=== PATIENT | female | born 1945 | race Caucasian/White ===

== ENCOUNTER 2022-01-09 14:17 | Inpatient (IN) | payer BC, MEDICARE ==
[2022-01-09] MEDS ORDERED: HYDROmorphone 1 MG/ML 1 ML SYRINGE IVP STA ×2 (14:29→18:28)
[2022-01-09] MEDS ORDERED: LORazepam 2 MG/ML INJ IV STA ×2 (14:29→18:28)
--- NOTE | 2022-01-09 14:35 | ED ---
Upper Extremity HPI - General Chief Complaint: Extremity Injury, Upper Stated Complaint: Arm Fracture Time Seen by Provider: 01/09/22 14:17 Source: patient, EMS, RN notes reviewed Mode of arrival: EMS Limitations: no limitations - History of Present Illness Initial Comments: 76-year-old female who states that she fell landing on her outstretched left up per extremity she stated she heard a snap and felt immense pain to the left arm. She denies any head neck or back pain she does have she states a abrasion to her left knee no other current complaints or modifying factors she does take Plavix no other medications that would effect blood clotting. Complaint: Injury to:: left, arm - Related Data Home Medications Medication Instructions Recorded Confirmed Albuterol Inhaler [Ventolin Hfa 2 puff INHALATION RT-Q6H PRN 01/09/22 01/09/22 Inhaler] Ascorbic Acid [Vitamin C] 1,000 mg PO HS 01/09/22 01/09/22 Atorvastatin [Lipitor] 10 mg PO HS 01/09/22 01/09/22 Clopidogrel [Plavix] 75 mg PO DAILY 01/09/22 01/09/22 Insulin Aspart Prot/Insuln Asp See Protocol SQ AC-TID 01/09/22 01/09/22 [Novolog Mix 70-30 Flexpen] Melatonin 5 mg PO HS 01/09/22 01/09/22 amLODIPine [Norvasc] 5 mg PO HS 01/09/22 01/09/22 lisinopriL [Zestril] 2.5 mg PO DAILY 01/09/22 01/09/22 metFORMIN HCL [Glucophage] 1,000 mg PO BID 01/09/22 01/09/22 Allergies Allergy/AdvReac Type Severity Reaction Status Date / Time No Known Allergies Allergy Verified 01/09/22 18:20 Review of Systems ROS Statement: Those systems with pertinent positive or pertinent negative responses have been documented in the HPI. ROS Other: All systems not noted in ROS Statement are negative. General Exam - General Exam Comments Initial Comments: This is a well-developed well-nourished awake alert oriented 4 female with a [place] Coma Scale of 15 Limitations: no limitations General appearance: alert, in no apparent distress Head exam: Present: atraumatic, normocephalic, normal inspection Eye exam: Present: normal appearance, PERRL, EOMI. Absent: scleral icterus, conjunctival injection, periorbital swelling ENT exam: Present: normal exam, mucous membranes moist Neck exam: Present: normal inspection, full ROM, other (Surgery bruits). Absent: tenderness, meningismus, lymphadenopathy Respiratory exam: Present: normal lung sounds bilaterally. Absent: respiratory distress, wheezes, rales, rhonchi, stridor Cardiovascular Exam: Present: regular rate, normal rhythm, normal heart sounds. Absent: systolic murmur, diastolic murmur, rubs, gallop, clicks Extremities exam: Present: tenderness, normal capillary refill, other (Examination the extremities right upper extremity and right lower extremity unremarkable there is an abrasion over the knee and the left lower extremity tenderness palpation with evidence of deformity of the mid left humerus. Patient is splinted at this time. No sensorimotor or vascular deficits n). Absent: full ROM Back exam: Present: normal inspection, full ROM. Absent: tenderness Neurological exam: Present: alert, oriented X3, CN II-XII intact Psychiatric exam: Present: normal affect, normal mood Skin exam: Present: warm, dry, normal color, abrasion (As noted). Absent: rash Course Vital Signs 01/09/22 14:21 Temperature 98.0 F Pulse Rate 67 Respiratory 20 Rate Blood Pressure 167/67 O2 Sat by Pulse 95 Oximetry Procedures - Orthopedic Splinting/Casting Injury #1 Side: left Upper Extremity Injury Location: long arm Upper Extremity Immobilizer: posterior splint Additional Comments: Patient did tolerate this well is a good neurovascular exam afterwards. Patient's arm in the area of fracture demonstrate no evidence of any puncture wound. It had ample labral place over the fracture site. Medical Decision Making - Medical Decision Making I did discuss the findings with the patient and multiple family hours as well as Dr. Wade patient will be admitted for inpatient evaluation and treatment. - Radiology Data Radiology results: report reviewed (Imaging reviewed his old report evidence a comminuted midshaft fracture left humerus with displacement CT also done please see the complete report), image reviewed Disposition Clinical Impression: Closed left humeral fracture, Fall Disposition: ADMITTED IP TO THIS [facility] Condition: Fair Referrals: Daniel Haq DO [Primary Care Provider] - 1-2 days Decision Date: 01/09/22 Decision Time: 19:00
[2022-01-09] MEDS ORDERED: ONDANSETRON 4 MG/2 ML VIAL IVP STA (15:12)
--- NOTE | 2022-01-09 15:34 | XR ---
EXAMINATION TYPE: XR humerus LT DATE OF EXAM: 01/09/2022 COMPARISON: NONE HISTORY: Pain TECHNIQUE: 3 views FINDINGS: There is comminuted midshaft fracture of the left humerus. There is 100% posterior displace ment of the distal major fragment. There is spiral fracture component extending up to the femoral nec k. No dislocation seen at the elbow joint and shoulder joint. IMPRESSION: Acute comminuted displaced fracture mid shaft of the humerus.
--- NOTE | 2022-01-09 17:46 | CT ---
EXAMINATION TYPE: CT shoulder LT wo con DATE OF EXAM: 01/09/2022 COMPARISON: None HISTORY: Humerus fracture CT DLP: 587.3 mGycm Automated exposure control for dose reduction was used. Images obtained without contrast from the top of the AC joint to the distal shaft of the humerus with no contrast. There is comminuted displaced fracture of the mid and proximal shaft of the left humerus. There are s piral component extending up to the humeral neck. There is 100% lateral displacement of the distal ma carmen fragment. No evidence of a soft tissue mass. The glenohumeral joint is intact. The AC joint is intact. Scapula appears intact. No focal bone destr uction. The glenoid appears intact. IMPRESSION: Acute displaced comminuted fracture of the midshaft of the humerus. No evidence of a fracture at the shoulder joint. Mild calcific tendinitis noted at the greater tuberosity humerus.
[2022-01-09] MEDS: ONDANSETRON 4 MG/2 ML VIAL IVP STA (18:52)
[2022-01-09] MEDS ORDERED: NALOXONE 0.4 MG/ML 1 ML VIAL IV PRN (19:22)
[2022-01-09 20:05] LABS: Basophils % (A) 0 %; Eosinophils # (A) 0.1 k/uL (0-0.7); Eosinophils % (A) 1 %; HCT 35.9 % (34.0-46.0); Lymphocytes # (A) 1.5 k/uL (1.0-4.8); Lymphocytes % (A) 12 %; MCH 30.3 pg (25.0-35.0); MCHC 33.3 g/dL (31.0-37.0); MCV 90.8 fL (80.0-100.0); Mean Platelet Volume 6.9; Monocytes # (A) 0.8 k/uL (0-1.0); Monocytes % (A) 7 %; Neutrophils # (A) 10.2 k/uL (1.3-7.7); Neutrophils % (A) 79 %; Platelet Count 333 k/uL (150-450); RBC 3.95 m/uL (3.80-5.40); RDW 13.6 % (11.5-15.5); WBC 12.8 k/uL (3.8-10.6)
[2022-01-09 20:13] LABS: Prothrombin Time 10.4 sec (9.0-12.0)
[2022-01-09] MEDS: SODIUM CHLORIDE 0.9% 1,000 ML IV SCH (20:15)
[2022-01-09 20:53] LABS: ALT 13 U/L (4-34); AST 24 U/L (14-36); African American GFR (CKD) >90 (>60 ml/min/1.73 sqM); Albumin 3.9 g/dL (3.5-5.0); Alkaline Phosphatase 50 U/L (38-126); Anion Gap 11 mmol/L; Blood Urea Nitrogen 21 mg/dL (7-17); Calcium 9.5 mg/dL (8.4-10.2); Carbon Dioxide 27 mmol/L (22-30); Chloride 96 mmol/L (98-107); Glucose 146 mg/dL (74-99); Non-African American GFR(CKD) 87 (>60 ml/min/1.73 sqM); Potassium 3.9 mmol/L (3.5-5.1); Sodium 134 mmol/L (137-145); Total Bilirubin 0.4 mg/dL (0.2-1.3); Total Protein 6.1 g/dL (6.3-8.2)
[2022-01-09 23:02] LABS: Glucose,Whole Blood 151 mg/dL (70-110)
[2022-01-09] MEDS: INSULIN ASPART (NovoLOG) 100 UNIT/ML VIAL SQ SCH (23:24)
[2022-01-09] MEDS: MELATONIN 5 MG TABLET PO SCH (23:25)
[2022-01-09] MEDS: amLODIPine 5 MG TAB PO SCH (23:25)
--- NOTE | 2022-01-09 23:54 | P.CONS ---
History of Present Illness - Reason for Consult Consult date: 01/09/22 pre op eval - Chief Complaint fall - History of Present Illness 76 year old female with CAD recent stent 6 months ago on plavix, DM , h/o stroke She comes in today after sustaining an accidental slip and fall on outstretched hand, resulting in severe pain in her left arm. she denies any LOC or head injury. she denies any associated palpitations, SOB, chest pain, denies any recent illness or hospitalization. she reports recent history of CAD requiring a stent about 6 months ago, currently on plavix. she denies any recent episodes within last month of CHF, arrhythmias, or MN. she able to do chores around the house, with no limitations related to chest pain or SOB . in the ED, imaging showed closed left humeral fracture . she was placed in back slap splint , and admitted to surgery medicine consulted for medical management and pre op eval. blood work unremarkable except for elevated WBC , mild hyponatremia , slightly elevated blood sugar. Review of Systems Pertinent positives as noted in HPI. All other systems were reviewed and are negative Past Medical History Past Medical History: Coronary Artery Disease (CAD), CVA/TIA, Diabetes Mellitus, Hyperlipidemia, Hypertension - Past Family History family Family Medical History: Coronary Artery Disease (CAD) Medications and Allergies Home Medications Medication Instructions Recorded Confirmed Type Albuterol Inhaler [Ventolin Hfa 2 puff INHALATION RT-Q6H PRN 01/09/22 01/09/22 History Inhaler] Ascorbic Acid [Vitamin C] 1,000 mg PO HS 01/09/22 01/09/22 History Atorvastatin [Lipitor] 10 mg PO HS 01/09/22 01/09/22 History Clopidogrel [Plavix] 75 mg PO DAILY 01/09/22 01/09/22 History Insulin Aspart Prot/Insuln Asp See Protocol SQ AC-TID 01/09/22 01/09/22 History [Novolog Mix 70-30 Flexpen] Melatonin 5 mg PO HS 01/09/22 01/09/22 History amLODIPine [Norvasc] 5 mg PO HS 01/09/22 01/09/22 History lisinopriL [Zestril] 2.5 mg PO DAILY 01/09/22 01/09/22 History metFORMIN HCL [Glucophage] 1,000 mg PO BID 01/09/22 01/09/22 History Allergies Allergy/AdvReac Type Severity Reaction Status Date / Time No Known Allergies Allergy Verified 01/09/22 18:20 Physical Exam Vitals: Vital Signs Temp Pulse Pulse Resp BP BP Pulse Ox 01/09/22 20:59 98.8 F 72 13 158/65 99 01/09/22 19:10 74 16 142/62 96 01/09/22 14:21 98.0 F 67 20 167/67 95 Intake and Output 01/09/22 01/09/22 01/09/22 06:59 14:59 22:59 Other: Weight 66.678 kg Constitutional: No acute distress, sleepy due to recently medicated , easily arousable Eyes: Anicteric sclerae, moist conjunctiva, Pupils equal round reactive to light ENMT: NC/AT Oropharynx clear, no erythema, or exudates Neck: Supple, no masses, or JVD No carotid bruits No thyromegaly Lungs: Clear to auscultation Clear to percussion Normal respiratory effort, no accessory muscle use Cardiovascular: Heart regular in rate and rhythm, systolic murmurs, no gallops, or rubs No peripheral edema Abdominal: Soft Nontender, no guarding, rebound or rigidity Abdomen moving with respiration Normoactive bowel sounds No hepatomegaly, No splenomegaly No palpable mass No abdominal wall hernia noted Skin: Normal temperature, tone, texture, turgor No induration No subcutaneous nodules No rash, lesions No ulcers Extremities: No digital cyanosis No clubbing Pedal pulses intact and symmetrical Radial pulses intact and symmetrical , capillary refill immediate No calf tenderness Psychiatric: sleepy easily arousable and oriented to person, place and time Appropriate affect fair judgement Neuro Muscles Strength 5/5 in bilateral lower and right upper extremities , limited exam over left UE, due to fracture of the humerus Sensation to light touch grossly present throughout Cranial nerves II-XII grossly intact No focal sensory deficits Lymphatics: no palpable cervical or supraclavicular , or inguinal lymph nodes Results CBC & Chem 7: 01/09/22 19:50 01/09/22 19:50 Labs: Abnormal Lab Results - Last 24 Hours (Table) 01/09/22 01/09/22 Range/Units 19:50 19:50 WBC 12.8 H (3.8-10.6) k/uL Neutrophils # 10.2 H (1.3-7.7) k/uL Sodium 134 L (137-145) mmol/L Chloride 96 L (98-107) mmol/L BUN 21 H (7-17) mg/dL Glucose 146 H (74-99) mg/dL Total Protein 6.1 L (6.3-8.2) g/dL Assessment and Plan Assessment: closed left humeral fracture secondary to accidental fall left arm in back splint management per orthopedic pain control h/o CAD s/p stent 6 months ago cardiology consult plavix on hold , await cardiology input resume statin hypertension resume amlodipine hold lisinopril , resume post op day 1 DM insulin sliding scale check A1c DVT PPX heparin sc tid full code cardiology consulted for cardiac clearance due to recent CAD requiring stent placement less than 6 months ago . no symptoms suggestive of active heart disease check EKG patient is high risk for perioperative cardiovascular complications with no identifiable modifiable risk factors at this time .
[2022-01-10] MEDS: HEPARIN SODIUM,PORCINE/PF 5,000 UNIT/0.5 ML SYRINGE SQ SCH ×4 (01:19→23:40)
[2022-01-10] MEDS: SODIUM CHLORIDE 0.9% 1,000 ML IV SCH ×3 (05:14→16:13)
[2022-01-10] MEDS: HYDROmorphone 1 MG/ML 1 ML SYRINGE IVP PRN ×2 (05:25→20:03)
[2022-01-10] MEDS: ONDANSETRON 4 MG/2 ML VIAL IVP PRN (05:25)
[2022-01-10 07:00] LABS: Glucose,Whole Blood 159 mg/dL (70-110)
[2022-01-10] MEDS: INSULIN ASPART (NovoLOG) 100 UNIT/ML VIAL SQ SCH ×4 (07:44→23:05)
--- NOTE | 2022-01-10 08:12 | P.HPOR ---
History of Present Illness H&P Date: 01/10/22 This patient is a 76-year-old female with past medical history of CAD on Plavix with recent stent, stroke, diabetes that presented to [facility] emergency department yesterday with complaints of left arm pain after a fall. Patient states she was walking on the stairs at her daughter's house and she missed a step, falling onto the left arm. She felt a snap and experienced immediate pain in the arm. She was transported to [facility] emergency department. X-rays in the emergency department revealed a displaced left humerus fracture. She is admitted to the care of Dr. Wade with a consult placed to internal medicine. Patient is examined bedside this morning. She is complaining of isolated left arm pain. She denies numbness or tingling of the left upper extremity. She denies neck pain. Last dose of Plavix was yesterday. She believes she might have hit her head but only slightly, denies headaches or vision changes. She otherwise feels that this time is no additional complaints. Vital signs stable. Past Medical History Past Medical History: Coronary Artery Disease (CAD), CVA/TIA, Diabetes Mellitus, Hyperlipidemia, Hypertension Additional Past Medical History / Comment(s): Ulcers in past, heart cath in 1979, CA in 2007 Last Myocardial Infarction Date:: 2007 History of Any Multi-Drug Resistant Organisms: None Reported Past Surgical History: Cholecystectomy, Heart Catheterization With Stent Additional Past Surgical History / Comment(s): Throat polyps removed Past Anesthesia/Blood Transfusion Reactions: Previous Problems w/ Anesthesia Additional Past Anesthesia/Blood Transfusion Reaction / Comment(s): Patient is very sleepy after anesthesia; no blood trnsfushions known Date of Last Stent Placement:: 1979 Past Psychological History: Anxiety, Depression, PTSD Smoking Status: Current every day smoker - Past Family History family Family Medical History: Coronary Artery Disease (CAD) Medications and Allergies Home Medications Medication Instructions Recorded Confirmed Type Albuterol Inhaler [Ventolin Hfa 2 puff INHALATION RT-Q6H PRN 01/09/22 01/09/22 History Inhaler] Ascorbic Acid [Vitamin C] 1,000 mg PO HS 01/09/22 01/09/22 History Atorvastatin [Lipitor] 10 mg PO HS 01/09/22 01/09/22 History Clopidogrel [Plavix] 75 mg PO DAILY 01/09/22 01/09/22 History Insulin Aspart Prot/Insuln Asp See Protocol SQ AC-TID 01/09/22 01/09/22 History [Novolog Mix 70-30 Flexpen] Melatonin 5 mg PO HS 01/09/22 01/09/22 History amLODIPine [Norvasc] 5 mg PO HS 01/09/22 01/09/22 History lisinopriL [Zestril] 2.5 mg PO DAILY 01/09/22 01/09/22 History metFORMIN HCL [Glucophage] 1,000 mg PO BID 01/09/22 01/09/22 History Allergies Allergy/AdvReac Type Severity Reaction Status Date / Time No Known Allergies Allergy Verified 01/09/22 18:20 Physical Examination On examination, patient is sitting up in bed in no apparent distress. She is alert and oriented 3. Her head appears normocephalic and atraumatic. Her breathing appears nonlabored. On inspection of the right upper extremity, no obvious deformities or signs of trauma. On inspection of the left upper extremity, there is a posterior splint in place in a sling. The visible portion of the hand and fingers are warm and well-perfused with brisk capillary refill distally. Radial pulse is palpable. Motor and sensory function is intact of the left upper extremity. On inspection of the bilateral lower extremities, no obvious deformities or signs of trauma. There is a very superficial abrasion at the left anterior knee. No pain with palpation of the left knee. No left knee effusion. No pain with passive [id number] of the bilateral hips. Results Left humerus x-ray 01/09/22: Displaced left humeral shaft fracture - Labs Labs: Abnormal Lab Results - Last 24 Hours (Table) 01/09/22 01/09/22 01/09/22 Range/Units 19:50 19:50 23:00 WBC 12.8 H (3.8-10.6) k/uL Neutrophils # 10.2 H (1.3-7.7) k/uL Sodium 134 L (137-145) mmol/L Chloride 96 L (98-107) mmol/L BUN 21 H (7-17) mg/dL Glucose 146 H (74-99) mg/dL POC Glucose (mg/dL) 151 H (70-110) mg/dL Total Protein 6.1 L (6.3-8.2) g/dL 01/10/22 Range/Units 06:58 WBC (3.8-10.6) k/uL Neutrophils # (1.3-7.7) k/uL Sodium (137-145) mmol/L Chloride (98-107) mmol/L BUN (7-17) mg/dL Glucose (74-99) mg/dL POC Glucose (mg/dL) 159 H (70-110) mg/dL Total Protein (6.3-8.2) g/dL H & H 01/09/22 Range/Units 19:50 Hgb 12.0 (11.4-16.0) gm/dL Hct 35.9 (34.0-46.0) % Coagulation 01/09/22 Range/Units 19:50 INR 1.0 (<1.2) Result Diagrams: 01/09/22 19:50 01/09/22 19:50 Assessment and Plan Assessment: Displaced left humeral shaft fracture Plan: - Clinical and imaging findings were discussed with the patient. The patient was discussed with Dr. Wade. Recommend operative fixation of the patient's left humerus fracture with intramedullary veronica. Surgical risks were discussed with the patient. Patient gave verbal consent for surgery bedside this morning. - Keep current splint and sling in place the left upper extremity. - Internal medicine consultation for preoperative medical evaluation. - We will plan for surgery this morning pending medical clearance. NPO diet.
[2022-01-10] MEDS ORDERED: fentaNYL (PF) 50 MCG/ML 2 ML AMP ONE (10:00)
[2022-01-10] MEDS ORDERED: MIDAZOLAM 2 MG/2 ML VIAL ONE (10:00)
[2022-01-10] MEDS ORDERED: PROPOFOL 10 MG/ML 20 ML VIAL IV ONE (10:00)
[2022-01-10] MEDS ORDERED: LIDOCAINE 2% INJ 20 MG/ML (2 ML VIAL) ONE (10:00)
[2022-01-10] MEDS ORDERED: SUCCINYLCHOLINE CHLORIDE 200 MG/10 ML VIAL IV ONE (10:00)
[2022-01-10] MEDS ORDERED: PHENYLEPHRINE-0.9% NACL SYG 1,000 MCG/10 ML SYRINGE ONE (10:00)
[2022-01-10] MEDS ORDERED: ONDANSETRON 4 MG/2 ML VIAL ONE (10:00)
[2022-01-10] MEDS ORDERED: LACTATED RINGERS 1,000 ML IV ONE (10:05)
[2022-01-10] MEDS ORDERED: SODIUM CHLORIDE 0.9% 100 ML with ceFAZolin 2,000 MG IV ONE ×2 (10:25)
--- NOTE | 2022-01-10 10:39 | P.PN ---
Subjective Progress Note Date: 01/10/22 Patient was seen and examined. No acute events overnight. Patient reports well controlled pain in her left arm. She denies any chest pain, shortness breath or palpitations. No nausea or vomiting. No fever or chills. General: [non toxic], [no distress], [appears at stated age] Derm: [warm], [dry] Head: [atraumatic], [normocephalic], [symmetric] Eyes: [EOMI], [no lid lag], [anicteric sclera] Mouth: [no lip lesion], [mucus membranes moist] Cardiovascular: [S1S2 reg], [systolic murmur] Lungs: [CTA bilateral], [no rhonchi, no rales] , [no accessory muscle use] Abdominal: [soft], [ nontender to palpation], [no guarding], [no appreciable organomegaly] Ext: [no gross muscle atrophy], [left arm wrapped and in a sling], [no contractures] Neuro: [no focal neuro deficits] Psych: [Alert], [oriented], [appropriate affect] #Systolic murmur #History of CAD post stent #Leukocytosis with neutrophilia #Hypochloremic hyponatremia #Elevated BUN #Left humeral fracture Chronic conditions: Hypertension, diabetes mellitus Cardiology has been consulted for cardiac clearance due to recent CAD requiring stent placement less than 6 months ago. Restart Plavix when OK with cardiology and surgery. Restart Lipitor. Patient would benefit from a beta antonio. Leukocytosis likely reactive. Patient with no signs of infection. Continue to monitor. Hypochloremic hyponatremia and elevated BUN likely due to slight dehydration. Continue normal saline at 50 mL per hour. Repeat BMP tomorrow morning. Orthopedic surgery consulted, plans for surgery today. Continue fall precautions. PT and OT has been consulted to work with this patient. Management as per orthopedic surgery. Continue amlodipine and lisinopril. Monitor vitals, adjust medication if necessary. Continue low-dose sliding scale along with Accu-Cheks 4 times a day and hypoglycemic precautions. Heparin for DVT prophylaxis. Patient would like to be full code. Thank you for this consultation. Please call [facility] with additional questions or concerns. Objective - Vital Signs Vital signs: Vital Signs Temp 98.3 F 01/10/22 08:00 Pulse 71 01/10/22 08:00 Resp 18 09/05/22 08:00 BP 127/54 01/10/22 08:00 Pulse Ox 96 01/10/22 08:00 FiO2 Intake & Output 01/09/22 01/10/22 01/10/22 18:59 06:59 18:59 Weight 66.678 kg 66.678 kg Other: # Voids 1 - Labs CBC & Chem 7: 01/09/22 19:50 01/09/22 19:50 Labs: Abnormal Lab Results - Last 24 Hours (Table) 01/09/22 01/09/22 01/09/22 Range/Units 19:50 19:50 23:00 WBC 12.8 H (3.8-10.6) k/uL Neutrophils # 10.2 H (1.3-7.7) k/uL Sodium 134 L (137-145) mmol/L Chloride 96 L (98-107) mmol/L BUN 21 H (7-17) mg/dL Glucose 146 H (74-99) mg/dL POC Glucose (mg/dL) 151 H (70-110) mg/dL Total Protein 6.1 L (6.3-8.2) g/dL 01/10/22 Range/Units 06:58 WBC (3.8-10.6) k/uL Neutrophils # (1.3-7.7) k/uL Sodium (137-145) mmol/L Chloride (98-107) mmol/L BUN (7-17) mg/dL Glucose (74-99) mg/dL POC Glucose (mg/dL) 159 H (70-110) mg/dL Total Protein (6.3-8.2) g/dL
--- NOTE | 2022-01-10 12:03 | P.OP ---
Date of Procedure: 01/10/22 Preoperative Diagnosis: Closed spiral fracture left midshaft humerus with proximal extension Postoperative Diagnosis: Closed spiral fracture left midshaft humerus with proximal extension Procedure(s) Performed: Closed intramedullary rodding left humerus Implants: [employer] TriGen humeral nail 8 mm x 26 cm Anesthesia: ZAIN Surgeon: Gunnar Wade Filter Press Tender Head #1: Marla Daly Estimated Blood Loss (ml): 30 Pathology: none sent Condition: stable Disposition: PACU Indications for Procedure: This is a 76-year-old female sustained a ground-level fall onto her left arm. She sustained a closed spiral fracture of her left midshaft humerus proximal extension. She is admitted the hospital after reviewing x-rays and discussing the surgical and nonsurgical treatment options with her at length, she wished to proceed with closed intramedullary rodding of her left humerus and informed consent was obtained. Operative Findings: Operative findings are consistent with a spiral fracture of the midshaft left humerus with proximal extension. Description of Procedure: The patient was seen in the preoperative area the consent was reviewed per site was marked with a skin marker. Patient was then brought to the operating room and given 2 g of Ancef intravenously general ossific was administered by the anesthesia department patient was placed in a beachchair position with the bony prominences well-padded. The left upper extremity was then prepped and draped in usual sterile fashion. A universal timeout was performed which confirmed the patient's name, surgical site, ALLERGIES, and consent. Using fluoroscopy insertion site of the humeral veronica was located at the proximal humerus. Skin incision was made sharply incision was carried down to the deltoid muscle. The deltoid was then split in line with its fibers. The rotator cuff tendon was visualized and split in line with the incision to the insertion site just medial to the greater tuberosity. Guidewire was inserted under fluoroscopic guidance at the insertion point of the veronica. After correct placement of the guidewire was confirmed, a hand reamers used to open up the proximal humerus. A ball-tipped guidewire was then passed proximally to distally across the fracture site. This was done with fluoroscopic guidance. Next, hand reamers were used to ream the humeral canal to 9 mm. The veronica was then measured and appropriate size veronica was inserted over the guidewire to the appropriate depth. During insertion around the fracture was reduced well. Next using the proximal targeting guide, 3 screws were then placed in the humeral head through small stab incisions. This was confirmed with fluoroscopy. Proximal targeting guide was then removed and attention was directed distally. Under fluoroscopic guidance a small incision was made the anterior aspect of the distal arm for the distal locking screw. The incision was carried bluntly down to the anterior cortex of the bone and using fluoroscopy the guide pin was inserted through the distal locking hole. This was then measured and the appropriate distal locking screws placed. Final fluoroscopic x-rays confirmed reduction of fracture and placement of the proximal distal screws. There is what irrigated. The rotator cuff was repaired with #1 Vicryl followed by #1 Vicryl for the deltoid. 3-0 Vicryl was used for the subcutaneous tissues and goyo for the skin. Sterile dressings were applied patient was placed in an arm sling and transferred recovery room stable condition. Filter Press Tender Head MARILUZ Blake was hard due the complexity of surgery the need for skilled surgical attendant. She assisted in positioning, draping, exposure, retraction and closure of the wound.
--- NOTE | 2022-01-10 12:04 | XR ---
Intraoperative/procedural fluoroscopic services were provided for ORIF left humerus. Hardware appears intact with position. Midshaft humerus fracture identified with improvement in alignment. Total fluo roscopy time is 3 minutes with a total of 4 submitted images to PACS. Please see the operative note f or further details.
[2022-01-10] MEDS ORDERED: HYDROmorphone 0.5 MG/0.5 ML SYRINGE IVP PRN ×2 (12:25)
[2022-01-10] MEDS ORDERED: hydrOXYzine pamoate 25 MG CAP PO PRN (12:25)
[2022-01-10] MEDS ORDERED: SENNOSIDES-DOCUSATE SODIUM 1 EACH TAB PO PRN (12:25)
[2022-01-10 12:31] LABS: Glucose,Whole Blood 148 mg/dL (70-110)
[2022-01-10] MEDS: HYDROmorphone 0.5 MG/0.5 ML SYRINGE IVP PRN ×2 (12:33→12:41)
[2022-01-10] MEDS: ONDANSETRON 4 MG/2 ML VIAL IVP STA (13:11)
--- NOTE | 2022-01-10 14:58 | P.CRDCN ---
History of Present Illness History of present illness: This is Dr. Redman dictating a consult on this patient The patient was interviewed and examined IMPRESSION / ASSESSMENT: History of fall and a left humeral fracture status post ORIF Asymptomatic from a cardiac standpoint History of hypertension History of coronary stenting and an old anterior wall UT Type 2 diabetes Murmur of aortic stenosis, well known to the patient PLAN: Continue cardiac medications including atorvastatin Plavix amlodipine lisinopril Diabetes management per primary team/internal medicine Follow-up with her primary geomorphology teacher in [facility]. Patient already has an appointment HPI Patient has a history of fall resulting in fracture of the humerus She denies syncope She has not had any chest discomfort dizziness lightheadedness or any undue shortness of breath She looks comfortable ROS: No fever chills or rigors, no cough, phlegm or expectoration, no nausea, vomiting or diarrhea, no hematuria, dysuria, no musculoskeletal complaints, no strokes or seizures, no skin lesions. EXAMINATION: Afebrile 97F Pulse rate in the 70s and 80s Normal respirations Blood pressure 142/63 mmHg Heart systolic ejection murmur over the precordium No lower extremity edema REVIEW OF LABS, ECG & MEDICAL DATA White count 12.8 thousand, hemoglobin 12, platelet count 333,000 Sodium 134, potassium 3.9 BUN 21 and creatinine 0.64 Past Medical History Past Medical History: Coronary Artery Disease (CAD), CVA/TIA, Diabetes Mellitus, Hyperlipidemia, Hypertension Additional Past Medical History / Comment(s): Ulcers in past, heart cath in 1979, UT in 2007 Last Myocardial Infarction Date:: 2007 History of Any Multi-Drug Resistant Organisms: None Reported Past Surgical History: Cholecystectomy, Heart Catheterization With Stent Additional Past Surgical History / Comment(s): Throat polyps removed Past Anesthesia/Blood Transfusion Reactions: Previous Problems w/ Anesthesia Additional Past Anesthesia/Blood Transfusion Reaction / Comment(s): Patient is very sleepy after anesthesia; no blood trnsfushions known Date of Last Stent Placement:: 1979 Past Psychological History: Anxiety, Depression, PTSD Smoking Status: Current every day smoker - Past Family History family Family Medical History: Coronary Artery Disease (CAD) Medications and Allergies Home Medications Medication Instructions Recorded Confirmed Type Albuterol Inhaler [Ventolin Hfa 2 puff INHALATION RT-Q6H PRN 01/09/22 01/09/22 History Inhaler] Ascorbic Acid [Vitamin C] 1,000 mg PO HS 01/09/22 01/09/22 History Atorvastatin [Lipitor] 10 mg PO HS 01/09/22 01/09/22 History Clopidogrel [Plavix] 75 mg PO DAILY 01/09/22 01/09/22 History Insulin Aspart Prot/Insuln Asp See Protocol SQ AC-TID 01/09/22 01/09/22 History [Novolog Mix 70-30 Flexpen] Melatonin 5 mg PO HS 01/09/22 01/09/22 History amLODIPine [Norvasc] 5 mg PO HS 01/09/22 01/09/22 History lisinopriL [Zestril] 2.5 mg PO DAILY 01/09/22 01/09/22 History metFORMIN HCL [Glucophage] 1,000 mg PO BID 01/09/22 01/09/22 History Allergies Allergy/AdvReac Type Severity Reaction Status Date / Time No Known Allergies Allergy Verified 01/09/22 18:20 Physical Exam Vitals: Vital Signs Temp Pulse Pulse Resp BP BP Pulse Ox 01/10/22 13:00 91 18 149/65 93 L 01/10/22 12:45 86 18 142/63 94 L 01/10/22 12:30 82 18 158/80 94 L 01/10/22 12:22 97 F L 75 18 161/67 100 01/10/22 08:00 98.3 F 71 18 127/54 96 01/10/22 01:10 98.1 F 76 17 135/63 99 01/09/22 20:59 98.8 F 72 13 158/65 99 01/09/22 19:10 74 16 142/62 96 Intake and Output 01/09/22 01/10/22 01/10/22 22:59 06:59 14:59 Intake Total 1000 Output Total 30 Balance 970 Intake: IV 1000 Output: Estimated Blood Loss 30 Other: # Voids 1 1 Weight 66.678 kg 66.678 kg Results 01/09/22 19:50 01/09/22 19:50 Cardiac Enzymes 01/09/22 Range/Units 19:50 AST 24 (14-36) U/L Coagulation 01/09/22 Range/Units 19:50 PT 10.4 (9.0-12.0) sec CBC 01/09/22 Range/Units 19:50 WBC 12.8 H (3.8-10.6) k/uL RBC 3.95 (3.80-5.40) m/uL Hgb 12.0 (11.4-16.0) gm/dL Hct 35.9 (34.0-46.0) % Plt Count 333 (150-450) k/uL Comprehensive Metabolic Panel 01/09/22 Range/Units 19:50 Sodium 134 L (137-145) mmol/L Potassium 3.9 (3.5-5.1) mmol/L Chloride 96 L (98-107) mmol/L Carbon Dioxide 27 (22-30) mmol/L BUN 21 H (7-17) mg/dL Creatinine 0.64 (0.52-1.04) mg/dL Glucose 146 H (74-99) mg/dL Calcium 9.5 (8.4-10.2) mg/dL AST 24 (14-36) U/L ALT 13 (4-34) U/L Alkaline Phosphatase 50 (38-126) U/L Total Protein 6.1 L (6.3-8.2) g/dL Albumin 3.9 (3.5-5.0) g/dL Current Medications Generic Name Dose Route Start Last Admin Trade Name Freq PRN Reason Stop Dose Admin Hydrocodone Bitart/Acetaminophen 1 each 01/10/22 12:25 Hydrocodone/Apap 5-325mg 1 Each Tab PO Q6HR PRN Pain Scale 1 to 5 Hydrocodone Bitart/Acetaminophen 2 each 01/10/22 12:25 Hydrocodone/Apap 5-325mg 1 Each Tab PO Q6HR PRN Pain Scale 6 to 10 Amlodipine Besylate 5 mg 01/09/22 21:15 01/09/22 23:25 Amlodipine 5 Mg Tab PO 5 mg HS TABITHA Administration Atorvastatin Calcium 10 mg 01/10/22 21:15 Atorvastatin 10 Mg Tab PO HS TABITHA Heparin Sodium (Porcine) 5,000 unit 01/10/22 00:00 01/10/22 11:44 Heparin Sodium,Porcine/Pf 5,000 Unit/0.5 Ml Syringe SQ Not Given Q8HR TABITHA Hydromorphone HCl 1 mg 01/09/22 19:22 01/10/22 05:25 Hydromorphone 1 Mg/Ml 1 Ml Syringe IVP 1 mg Q3HR PRN Administration Severe Pain (Scale 7 to 10) Hydromorphone HCl 0.125 mg 01/10/22 12:25 Hydromorphone 0.5 Mg/0.5 Ml Syringe IVP Q3HR PRN Pain Scale 1 to 3 Hydromorphone HCl 0.25 mg 01/10/22 12:25 Hydromorphone 0.5 Mg/0.5 Ml Syringe IVP Q3HR PRN Pain Scale 4 to 6 Hydromorphone HCl 0.5 mg 01/10/22 12:25 01/10/22 12:41 Hydromorphone 0.5 Mg/0.5 Ml Syringe IVP 0.5 mg Q3HR PRN Administration Pain Scale 7 to 10 Hydroxyzine Pamoate 25 mg 01/10/22 12:25 Hydroxyzine Pamoate 25 Mg Cap PO Q6HR PRN Nausea/Anxiety Sodium Chloride 1,000 mls @ 50 mls/hr 01/09/22 19:30 01/10/22 07:44 Saline 0.9% IV Not Given .Q20H [facility] Cefazolin Sodium 2 gm/ Sodium 50 mls @ 100 mls/hr 01/10/22 18:00 Chloride IVPB 01/11/22 02:29 Q8H [facility] Protocol Insulin Aspart 0 unit 01/09/22 21:13 01/10/22 11:44 Insulin Aspart (Novolog) 100 Unit/Ml Vial SQ Not Given ACHS [facility] Protocol Lisinopril 2.5 mg 01/11/22 09:00 Lisinopril 2.5 Mg Tab PO DAILY [facility] Melatonin 5 mg 01/09/22 21:15 01/09/22 23:25 Melatonin 5 Mg Tablet PO Not Given HS [facility] Naloxone HCl 0.2 mg 01/09/22 19:22 Naloxone 0.4 Mg/Ml 1 Ml Vial IV Q2M PRN Opioid Reversal Ondansetron HCl 4 mg 01/09/22 19:22 01/10/22 05:25 Ondansetron 4 Mg/2 Ml Vial IVP 4 mg Q8HR PRN Administration Nausea And Vomiting Senna/Docusate Sodium 2 each 01/10/22 12:25 Sennosides-Docusate Sodium 1 Each Tab PO HS PRN Constipation Intake and Output 01/09/22 01/10/22 01/10/22 22:59 06:59 14:59 Intake Total 1000 Output Total 30 Balance 970 Intake: IV 1000 Output: Estimated Blood Loss 30 Other: # Voids 1 1 Weight 66.678 kg 66.678 kg Patient Weight 01/11/22 06:59 Weight 66.678 kg 01/09/22 19:50 01/09/22 19:50
[2022-01-10] MEDS: HYDROcodone/APAP 5-325MG 1 EACH TAB PO PRN (16:17)
[2022-01-10 17:01] LABS: Glucose,Whole Blood 195 mg/dL (70-110)
[2022-01-10 20:24] LABS: Glucose,Whole Blood 224 mg/dL (70-110)
[2022-01-10] MEDS: amLODIPine 5 MG TAB PO SCH (23:05)
[2022-01-10] MEDS: MELATONIN 5 MG TABLET PO SCH (23:05)
[2022-01-10] MEDS: ATORVASTATIN 10 MG TAB PO SCH (23:05)
[2022-01-11] MEDS: HYDROcodone/APAP 5-325MG 1 EACH TAB PO PRN ×4 (00:13→20:07)
[2022-01-11 02:10] LABS: Appearance,Urine Cloudy (Clear); Bacteria,Urine Rare /hpf; Bilirubin,Urine Negative (Negative); Blood,Urine Trace (Negative); Color,Urine Yellow; Glucose,Urine (UA) 4+ (Negative); Ketones,Urine 1+ (Negative); Leukocyte Esterase,Urine Large (Negative); Mucus,Urine Rare /hpf; Nitrite,Urine Negative (Negative); Protein,Urine 1+ (Negative); RBC,Urine 4 /hpf (0-5); Squamous Epithelial Cell,Urine <1 /hpf (0-4); Urobilinogen,Urine <2.0 mg/dL (<2.0); WBC,Urine >182 /hpf (0-5)
[2022-01-11] MEDS: HYDROmorphone 1 MG/ML 1 ML SYRINGE IVP PRN (02:21)
[2022-01-11] MEDS: ONDANSETRON 4 MG/2 ML VIAL IVP PRN (05:53)
[2022-01-11] MEDS: SODIUM CHLORIDE 0.9% 1,000 ML IV SCH (05:53)
[2022-01-11 07:01] LABS: Glucose,Whole Blood 223 mg/dL (70-110)
[2022-01-11] MEDS: INSULIN ASPART (NovoLOG) 100 UNIT/ML VIAL SQ SCH ×2 (07:56→21:34)
[2022-01-11] MEDS: HEPARIN SODIUM,PORCINE/PF 5,000 UNIT/0.5 ML SYRINGE SQ SCH ×2 (07:56→23:50)
[2022-01-11 11:28] LABS: Glucose,Whole Blood 243 mg/dL (70-110)
[2022-01-11 19:11] LABS: Glucose,Whole Blood 178 mg/dL (70-110)
[2022-01-11 21:05] LABS: Glucose,Whole Blood 244 mg/dL (70-110)
[2022-01-11] MEDS: ATORVASTATIN 10 MG TAB PO SCH (21:35)
[2022-01-11] MEDS: MELATONIN 5 MG TABLET PO SCH (21:35)
[2022-01-11] MEDS: amLODIPine 5 MG TAB PO SCH (21:35)
[2022-01-12] MEDS: HYDROcodone/APAP 5-325MG 1 EACH TAB PO PRN (04:51)
[2022-01-12 06:58] LABS: Glucose,Whole Blood 191 mg/dL (70-110)
[2022-01-12] MEDS: INSULIN ASPART (NovoLOG) 100 UNIT/ML VIAL SQ SCH ×3 (07:01→12:21)
[2022-01-12] MEDS: HEPARIN SODIUM,PORCINE/PF 5,000 UNIT/0.5 ML SYRINGE SQ SCH ×2 (07:01→07:17)
[2022-01-12] MEDS: SODIUM CHLORIDE 0.9% 1,000 ML IV SCH (07:15)
[2022-01-12 07:21] VITALS: BP 149/67; PULSE 94; RESP 17; TEMP 99.1
--- NOTE | 2022-01-12 08:36 | P.PN ---
Subjective Progress Note Date: 01/11/22 Principal diagnosis: Left humoral fracture Doing ok, she was throwing up last night due to the pain meds according to the nursing staff. Had a temp of 100.2, no fever now. She is still having pain in the left arm. She is up and around walking with help. No chest pain or sob. Objective - Vital Signs Vital signs: Vital Signs Temp 97.8 F 01/11/22 07:17 Pulse 93 01/11/22 07:17 Resp 18 01/11/22 07:17 BP 118/56 01/11/22 07:17 Pulse Ox 94 L 01/11/22 07:17 FiO2 Intake & Output 01/10/22 01/11/22 01/11/22 18:59 06:59 18:59 Intake Total 1000 840 Output Total 30 700 Balance 970 140 Weight 66.678 kg Intake: IV 1000 Intake, IV Titration 600 Amount Sodium Chloride 0.9% 1, 600 000 ml @ 50 mls/hr IV . Q20H [facility] Rx#:[id number] Oral 240 Output: Urine 550 Emesis 150 Estimated Blood Loss 30 Other: Voiding Method Toilet Toilet # Voids 1 1 - Exam Constitutional: No acute distress, conversant, pleasant Eyes:Anicteric sclerae, moist conjunctiva, no lid-lag, PERRLA, ENMT: Oropharynx clear, no erythema, exudates Neck: Supple, FROM, no masses, or JVD, No carotid bruits, No thyromegaly Lungs: Clear to auscultation, Clear to percussion, Normal respiratory effort, no accessory muscle use Cardiovascular: Heart regular in rate and rhythm, No murmurs, gallops, or rubs, No peripheral edema Abdominal: Soft, Nontender, no guarding, rebound or rigidity, Normoactive bowel sounds, No hepatomegaly, No splenomegaly, No palpable mass Skin: Normal temperature, tone, texture, turgor, no induration, No subcutaneous nodules, No rash, lesions, No ulcers Extremities: left arm splint. No digital cyanosis, No clubbing, Pedal pulses intact and symmetrical, Radial pulses intact and symmetrical, No calf tenderness Psychiatric: Alert and oriented to person, place and time, appropriate affect, intact judgement Neuro: Muscles Strength 5/5 in all 4 extremities, Sensation to light touch grossly present throughout, Cranial nerves II-XII grossly intact, no focal sensory deficits - Labs CBC & Chem 7: 01/09/22 19:50 01/09/22 19:50 Labs: Abnormal Lab Results - Last 24 Hours (Table) 01/10/22 01/10/22 01/11/22 Range/Units 16:58 20:22 01:41 POC Glucose (mg/dL) 195 H 224 H (70-110) mg/dL Urine Appearance Cloudy H (Clear) Urine Protein 1+ H (Negative) Urine Glucose (UA) 4+ H (Negative) Urine Ketones 1+ H (Negative) Urine Blood Trace H (Negative) Ur Leukocyte Esterase Large H (Negative) Urine WBC >182 H (0-5) /hpf Urine WBC Clumps Rare H (None) /hpf Urine Bacteria Rare H (None) /hpf Urine Mucus Rare H (None) /hpf 01/11/22 01/11/22 Range/Units 07:00 11:25 POC Glucose (mg/dL) 223 H 243 H (70-110) mg/dL Urine Appearance (Clear) Urine Protein (Negative) Urine Glucose (UA) (Negative) Urine Ketones (Negative) Urine Blood (Negative) Ur Leukocyte Esterase (Negative) Urine WBC (0-5) /hpf Urine WBC Clumps (None) /hpf Urine Bacteria (None) /hpf Urine Mucus (None) /hpf Assessment and Plan Plan: Left humeral fracture Restart Plavix when OK with cardiology and surgery. Restart Lipitor. Patient would benefit from a beta antonio. Ortho did ORIF PT and OT Leukocytosis Likely reactive. Patient with no signs of infection. Continue to monitor. Hypochloremic hyponatremia Treated with IV fluids Chronic conditions: Hypertension, diabetes mellitus Systolic murmur History of CAD post stent Resume meds
--- NOTE | 2022-01-12 08:42 | P.PN ---
Subjective Progress Note Date: 01/12/22 Principal diagnosis: Left humoral fracture Doing well, pain is controlled Objective - Vital Signs Vital signs: Vital Signs Temp 99.1 F 01/12/22 07:20 Pulse 94 01/12/22 07:20 Resp 17 01/12/22 07:20 BP 149/67 01/12/22 07:20 Pulse Ox 92 L 01/12/22 07:20 FiO2 Intake & Output 01/11/22 01/12/22 01/12/22 18:59 06:59 18:59 Other: Voiding Method Toilet Toilet # Voids 5 - Exam Constitutional: No acute distress, conversant, pleasant Eyes:Anicteric sclerae, moist conjunctiva, no lid-lag, PERRLA, ENMT: Oropharynx clear, no erythema, exudates Neck: Supple, FROM, no masses, or JVD, No carotid bruits, No thyromegaly Lungs: Clear to auscultation, Clear to percussion, Normal respiratory effort, no accessory muscle use Cardiovascular: Heart regular in rate and rhythm, No murmurs, gallops, or rubs, No peripheral edema Abdominal: Soft, Nontender, no guarding, rebound or rigidity, Normoactive bowel sounds, No hepatomegaly, No splenomegaly, No palpable mass Skin: Normal temperature, tone, texture, turgor, no induration, No subcutaneous nodules, No rash, lesions, No ulcers Extremities: left arm splint. No digital cyanosis, No clubbing, Pedal pulses intact and symmetrical, Radial pulses intact and symmetrical, No calf tenderness Psychiatric: Alert and oriented to person, place and time, appropriate affect, intact judgement Neuro: Muscles Strength 5/5 in all 4 extremities, Sensation to light touch grossly present throughout, Cranial nerves II-XII grossly intact, no focal sensory deficits - Labs CBC & Chem 7: 01/09/22 19:50 01/09/22 19:50 Labs: Abnormal Lab Results - Last 24 Hours (Table) 01/11/22 01/11/22 01/11/22 Range/Units 11:25 16:33 21:04 POC Glucose (mg/dL) 243 H 178 H 244 H (70-110) mg/dL 01/12/22 Range/Units 06:56 POC Glucose (mg/dL) 191 H (70-110) mg/dL Assessment and Plan Plan: Left humeral fracture Restart Plavix when OK with cardiology and surgery. Restart Lipitor. Patient would benefit from a beta antonio. Ortho did ORIF PT and OT Leukocytosis Likely reactive. Patient with no signs of infection. Continue to monitor. Hypochloremic hyponatremia Treated with IV fluids Chronic conditions: Hypertension, diabetes mellitus Systolic murmur History of CAD post stent Resume meds Clear to be discharged today from the medical perspective
--- NOTE | 2022-01-12 09:48 | P.DS ---
Providers Date of admission: 01/09/22 19:22 Attending physician: Gunnar Wade Consults: 01/09/22 20:41 Consult Physician Urgent Consulting Provider: Rose Marie Knox Consult Reason/Comments: preop medical clearance Do you want consulting provider notified?: Yes 01/10/22 07:30 Consult Physician Routine Consulting Provider: Deandre Redman Consult Reason/Comments: preop clearance Do you want consulting provider notified?: Yes Primary care physician: Daniel Severino [facility] Course: This is a 76-year-old female who sustained a ground level fall. Patient presented to [facility] emergency department for evaluation. X-rays in the emergency department revealed a left humerus fracture. Patient was admitted under the care of Dr. Wade for surgical intervention with a consult placed to internal medicine for pre-operative medical evaluation. Patient underwent a closed intramedullary rodding of the left humerus on 01/10/22. The procedure was performed without complication or sequelae. The patient is doing fairly well postoperatively. Vital signs and labs are stable on postoperative day #2. Patient was examined bedside today. She states the pain in her left arm is well-controlled at this time. Left upper extremity is currently immobilized in a sling. She states she feels well today. She is comfortable returning home to her sister's house today. She denies chest pain, shortness of breath, nausea, vomiting. She denies numbness or tingling of the left upper extremity. On examination, the patient is sitting up in bed in no apparent distress. She is alert and oriented 3. On inspection of the left upper extremity, there is a clean, dry, intact surgical dressing in place. No bleeding or drainage the dressing. Motor and sensory function is intact of the left upper extremity. The radial pulse is easily palpable, fingers are warm and well perfused. Patient is discharged home today in good condition, pending medical clearance. Patient will follow-up with Dr. Wade in the office in 2 weeks. Please see med rec for accurate list of discharge medication. Patient Condition at Discharge: Fair Plan - Discharge Summary New Discharge Prescriptions: Continue metFORMIN HCL [Glucophage] 1,000 mg PO BID Insulin Aspart Prot/Insuln Asp [Novolog Mix 70-30 Flexpen] See Protocol SQ AC-TID amLODIPine [Norvasc] 5 mg PO HS Clopidogrel [Plavix] 75 mg PO DAILY Atorvastatin [Lipitor] 10 mg PO HS Melatonin 5 mg PO HS Ascorbic Acid [Vitamin C] 1,000 mg PO HS lisinopriL [Zestril] 2.5 mg PO DAILY Albuterol Inhaler [Ventolin Hfa Inhaler] 2 puff INHALATION RT-Q6H PRN PRN Reason: Shortness Of Breath Discharge Medication List Albuterol Inhaler [Ventolin Hfa Inhaler] 2 puff INHALATION RT-Q6H PRN 01/09/22 [History] Ascorbic Acid [Vitamin C] 1,000 mg PO HS 01/09/22 [History] Atorvastatin [Lipitor] 10 mg PO HS 01/09/22 [History] Clopidogrel [Plavix] 75 mg PO DAILY 01/09/22 [History] Insulin Aspart Prot/Insuln Asp [Novolog Mix 70-30 Flexpen] See Protocol SQ AC- TID 01/09/22 [History] Melatonin 5 mg PO HS 01/09/22 [History] amLODIPine [Norvasc] 5 mg PO HS 01/09/22 [History] lisinopriL [Zestril] 2.5 mg PO DAILY 01/09/22 [History] metFORMIN HCL [Glucophage] 1,000 mg PO BID 01/09/22 [History] Follow up Appointment(s)/Referral(s): Daniel Haq DO [Primary Care Provider] - 1-2 days
[2022-01-12 11:43] LABS: Glucose,Whole Blood 232 mg/dL (70-110)
--- NOTE | 2022-01-13 10:15 | P.PN ---
Subjective Progress Note Date: 01/11/22 This is a 76-year-old female who is status post closed intramedullary rodding left humerus. This is postoperative day #1 and patient is seen and evaluated at bedside with Dr. Gunnar Wade. Patient denies any pain or new complaints today. Objective - Vital Signs Vital signs: Vital Signs Temp 99.1 F 01/12/22 07:20 Pulse 94 01/12/22 07:20 Resp 17 01/12/22 07:20 BP 149/67 01/12/22 07:20 Pulse Ox 92 L 01/12/22 07:20 FiO2 - Exam Vital signs are stable. Patient is in no acute distress and is alert and oriented 3. Sling is intact. Dressing is clean, dry, and intact. Patient has full motion of the left wrist and hand. Left upper extremity is warm and well perfused. Sensation intact. Neurovascular status and circulatory status are intact. - Labs CBC & Chem 7: 01/09/22 19:50 01/09/22 19:50 Labs: Abnormal Lab Results - Last 24 Hours (Table) 01/12/22 Range/Units 11:41 POC Glucose (mg/dL) 232 H (70-110) mg/dL Assessment and Plan Assessment: Status post intramedullary rodding left humerus (1) Closed left humeral fracture Status: Acute Code(s): S42.302A - UNSP FRACTURE OF SHAFT OF HUMERUS, LEFT ARM, INIT SNOMED Code(s): 98205060 Plan: 1. Maintain arm sling. Daily dressing changes. 2. Continue routine postoperative care and pain control. 3. Anticipate discharge home or to rehab in the next 24-48 hours.
== END 2022-01-12 15:06 | disposition home or self-care (01) | DRG 493 ==
LOC: EC 14:17 → 4SSUR 19:22
PROVIDERS: ADMIT Orthopaedic Surgery; ATTEND Orthopaedic Surgery
PROC: 8E0YXBF Computer Assisted Procedure of Lower Extremity, With Fluoroscopy (ICD-10-PCS; 2022-01-09)
PROC: 2W3BX1Z Immobilization of Left Upper Arm using Splint (ICD-10-PCS; 2022-01-09)
PROC: 0PSG36Z Reposition Left Humeral Shaft with Intramedullary Internal Fixation Device, Percutaneous Approach (ICD-10-PCS; principal; 2022-01-10 10:00)
DX: S42.342A Displaced spiral fracture of shaft of humerus, left arm, initial encounter for closed fracture (principal); E87.1 Hypo-osmolality and hyponatremia; E11.65 Type 2 diabetes mellitus with hyperglycemia; Y92.018 Other place in single-family (private) house as the place of occurrence of the external cause; E87.8 Other disorders of electrolyte and fluid balance, not elsewhere classified; I25.10 Atherosclerotic heart disease of native coronary artery without angina pectoris; I35.0 Nonrheumatic aortic (valve) stenosis; R01.1 Cardiac murmur, unspecified; E78.5 Hyperlipidemia, unspecified; I10 Essential (primary) hypertension; F32.A Depression, unspecified; F43.10 Post-traumatic stress disorder, unspecified; F17.210 Nicotine dependence, cigarettes, uncomplicated; I25.2 Old myocardial infarction; Z95.5 Presence of coronary angioplasty implant and graft; Z79.899 Other long term (current) drug therapy; Z79.02 Long term (current) use of antithrombotics/antiplatelets; Z79.84 Long term (current) use of oral hypoglycemic drugs; Z86.73 Personal history of transient ischemic attack (TIA), and cerebral infarction without residual deficits; Z82.49 Family history of ischemic heart disease and other diseases of the circulatory system; D72.829 Elevated white blood cell count, unspecified; W10.9XXA Fall (on) (from) unspecified stairs and steps, initial encounter; Z86.010 Personal history of colon polyps; Z90.49 Acquired absence of other specified parts of digestive tract
CPT/HCPCS: 29105; 80053; 81001; 85025; 85610; 93005; 96374; 96375; 96376; 99285